=== PATIENT | male | born 1990 | race Caucasian/White ===

== ENCOUNTER 2023-10-25 08:37 | Emergency (ER) | payer OTHER, SELFPAY ==
[2023-10-25] VITALS (7 sets, daily range): BP systolic 137–140; BP diastolic 74–91; PULSE 75–88; RESP 16–20; TEMP 36.6; O2SAT 97–99
--- NOTE | ~2023-10-25 | XR_ITS ---
Clinical Indication: Chest pain PA and lateral views of the chest: Comparison: None Findings: The lungs are clear, without evidence of focal consolidation or pleural effusion. Cardiome diastinal silhouette is within normal limits. Bones and soft tissues are unremarkable. Impression: Normal chest. Reviewed, dictated and finalized at location . [facility] Impression: Normal chest.
--- NOTE | 2023-10-25 08:55 | ECG_ITS ---
Measurements Intervals Bruce Rate: 80 P: 49 SC: 165 QRS: 58 QRSD: 82 T: 24 QT: 358 QTc: 413 Interpretive Statements SINUS RHYTHM BASELINE ARTIFACT- I, III, AVL NORMAL ECG NO PREVIOUS ECG AVAILABLE FOR COMPARISON Electronically Signed On 10-25-2023 9:27:52 [employer]ECTIVE CHIEF by Dom Goldstein D.O.
[2023-10-25 09:38] LABS: Basophils Percent Auto 0.3 % (0.2-1.2); Eosinophils Absolute Auto 0.1 K/mm3 (0-0.3); Eosinophils Percent Auto 0.7 % (0-4.4); Hematocrit 48.3 % (42.0-52.0); Hemoglobin 15.9 g/dL (14.0-18.0); Immature Granulocyte Absolute 0.03 K/mm3 (0.00-0.031); Immature Granulocyte Percent A 0.3 % (0-0.5); Lymphocytes Absolute Auto 2.58 K/mm3 (0.9-3.2); Lymphocytes Percent Auto 28.3 % (18.3-44.2); Mean Corpuscular HGB Conc 32.9 g/dl (32-36); Mean Corpuscular Hemoglobin 29.1 pg (26-34); Mean Corpuscular Volume 88.3 fl (80-100); Mean Platelet Volume 10.1 fl (7.4-10.4); Monocytes Absolute Auto 0.6 K/mm3 (0.1-0.6); Monocytes Percent Auto 6.1 % (2.6-8.5); Neutrophils Absolute Auto 5.9 K/mm3 (1.3-6.7); Neutrophils Percent Auto 64.3 % (45.5-73.1); Platelet Count Result 306 k/mm3 (150-375); Red Blood Count 5.47 M/mm3 (4.6-6.20); Red Cell Distribution Width 13.1 % (11.5-14.5); White Blood Count 9.1 K/mm3 (4.5-10.0)
[2023-10-25 09:47] LABS: Alanine Aminotransferase 34 U/L (6-50); Albumin Level 4.9 g/dL (3.5-5.1); Alkaline Phosphatase 112 U/L (38-126); Anion Gap 12 mmol/L (8-16); Aspartate Amino Transferase 25 U/L (17-59); Bilirubin,Total 0.4 mg/dL (0.2-1.3); Blood Urea Nitrogen 14 mg/dL (9-20); Carbon Dioxide 24 mmol/L (22-30); Chloride 101 mmol/L (98-107); Estimated CRCL calculation 179 ml/min; Estimated Glomerular Filt Rate > 60; Glucose 104 mg/dL (65-110); INR 0.8; Lipase 62 U/L (23-300); Potassium 4.3 mmol/L (3.4-5.0); Prothrombin Time 11.7 Seconds (11.1-14.7); Sodium 137 mmol/L (137-145)
[2023-10-25 09:48] LABS: Partial Thromboplastin Time 22.6 SECONDS (22.3-36.8)
[2023-10-25 09:59] LABS: Troponin I < 0.012 ng/mL (0.000-0.034)
--- NOTE | 2023-10-25 11:22 | ED.CHESTPAIN ---
HPI - Chest Pain General Chief Complaint: Chest Pain Stated Complaint: chest pain Time Seen by Provider: 10/25/23 10:58 History of Present Illness HPI narrative: 33-year-old male presenting to the ED for evaluation of intermittent left-sided chest pain. Patient states over the course of the last few months he has been having short lasting left-sided chest pain that sometimes radiates to his arms. Patient states last night he had onset of the chest pain and then today had some right-sided chest pain. Patient does have history of high cholesterol but no history of diabetes or hypertension. Patient denies any prior history of PE DVT or cardiac history. Patient denies any falls or injuries and patient denies any recent cough colds or fevers. Related Data Allergies Allergy/AdvReac Type Severity Reaction Status Date / Time Penicillins Allergy Unknown Unknown Verified 10/25/23 08:54 Review of Systems Review of Systems: All systems reviewed & are unremarkable except as noted in HPI and below PMFSH Family History Family History (Updated 10/27/11 @ 15:32 by DOCTOR UNKNOWN) Other Depression Family history of malignant neoplasm of male breast Family history of mental disorder Social History Social History Smoking status: Never smoker Alcohol intake: current Exam Narrative: APPEARANCE: Well appearing, no pain, no distress, well-nourished. HEAD: normocephalic, atraumatic. EYES: PERRLA/EOMI, conjunctivae clear. NOSE: Normal no drainage EARS:TMS clear with good light reflex. THROAT: Pharynx clear, no exudate. NECK: Supple. No adenopathy, no masses. RESPIRATORY: Airway patent, respirations nonlabored. Clear to auscultation bilaterally, no rales, rhonchi, wheezing. CARDIOVASCULAR: Regular rate and rhythm without murmurs rubs or gallops. ABDOMINAL: Soft, nontender, nondistended, normal bowel sounds MUSCULOSKELETAL: Reproducible right-sided chest wall tenderness NEURO: Alert. Cranial nerves II through XII intact. Grossly intact Course Course Emergency Course: 33-year-old male presenting to emergency department for evaluation atypical chest pain. Patient is afebrile with no leukocytosis and a stable hemoglobin of 15.9. Patient D-dimer was not elevated and patient had negative serial troponins, patient's serial EKG showed no evidence acute STEMI. Chest x-ray shows no acute abnormality. Patient was updated the results of the testing and patient was encouraged of close follow-up with his primary care physician for additional outpatient cardiac testing. All questions concerns were addressed patient was well-appearing at time of discharge. Vital Signs Vital signs: Vital Signs Temperature 97.9 F 10/25/23 08:51 Pulse Rate 75 10/25/23 08:51 Respiratory Rate 18 10/25/23 08:51 Blood Pressure 140/91 H 10/25/23 08:51 Pulse Oximetry 99 10/25/23 08:51 Oxygen Delivery Room Air 10/25/23 08:51 Temperature 97.9 F 10/25/23 08:51 Pulse Rate 78 10/25/23 12:45 Respiratory Rate 16 10/25/23 12:45 Blood Pressure 137/74 10/25/23 11:02 Pulse Oximetry 98 10/25/23 12:45 Oxygen Delivery Room Air 10/25/23 08:51 MDM - Chest Pain Differential Diagnosis Differential diagnosis: Likely pneumothorax, stable angina, unstable angina pectoris, atypical chest pain, costochondritis, chest pain and biliary colic Lab Data Attestation: I reviewed the patient's lab results. 10/25/23 09:32 10/25/23 09:32 Labs: Lab Results 10/25/23 10/25/23 Range/Units 09:32 11:59 WBC 9.1 (4.5-10.0) K/mm3 RBC 5.47 (4.6-6.20) M/mm3 Hgb 15.9 (14.0-18.0) g/dL Hct 48.3 (42.0-52.0) % MCV 88.3 (80-100) fl MCH 29.1 (26-34) pg MCHC 32.9 (32-36) g/dl RDW 13.1 (11.5-14.5) % Plt Count 306 (150-375) k/mm3 MPV 10.1 (7.4-10.4) fl Immature Gran % (Auto) 0.3 (0-0.5) % Neut % (Auto) 64.3 (45.5-73.1) % Lymph % (Auto) 28.3 (18.3-44.2) % Collin %
[2023-10-25 12:20] LABS: D Dimer 0.33 ug/mL (<0.48)
[2023-10-25 12:34] LABS: Troponin I < 0.012 ng/mL (0.000-0.034)
== END 2023-10-25 12:56 | disposition home or self-care (01) ==
PROVIDERS: Emergency Provider Emergency Medicine
DX: R07.89 Other chest pain (principal)
CPT/HCPCS: 36415; 71046; 80053; 83690; 84484; 85025; 85380; 85610; 85730; 93005; 99284